=== PATIENT | female | born 1965 | race Caucasian/White ===

== ENCOUNTER 2016-11-08 14:39 | Inpatient (IN) | payer OTHER ==
[~2016-11-08] VITALS: Ht 160 cm; Wt 99.9 kg
[2016-11-08 17:39] LABS: BASOPHIL COUNT 0.1 K/uL (0-0.1); EOSINOPHIL (%) 0.2 % (0-5); HEMATOCRIT 39.5 % (36.0-46.0); IMMATURE GRANULOCYTE (%) 4.1 % (0.0-0.7); IMMATURE GRANULOCYTE COUNT 1.7 K/uL; LYMPHOCYTE COUNT 0.5 K/uL (1.0-2.8); MCH 17.9 PG (29.0-34.0); MCHC 30.4 G/DL (30.0-36.0); MONOCYTE (%) 3.6 % (3-12); MONOCYTE COUNT 0.2 K/uL (0-0.8); NEUTROPHIL (%) 78.1 % (45-76); NEUTROPHIL COUNT 3.2 K/uL (1.8-6.4); RBC DIS.WIDTH-CV 22.3 % (11.8-14.6); RBC DIS.WIDTH-SD 45.4 % (39-53); RED BLOOD COUNT 6.69 M/uL (3.80-5.20); WHITE BLOOD COUNT 4.2 K/uL (4.1-10.2)
[2016-11-08 17:46] LABS: CHLORIDE 102 mEq/L (99-109); POTASSIUM 3.4 mEq/L (3.7-5.4); SODIUM 138 mEq/L (136-147)
[2016-11-08 17:48] LABS: GLUCOSE 77 mg/dL (70-99)
[2016-11-08 17:49] LABS: ANION GAP 14 MEQ/L (2-14)
[2016-11-08 17:50] LABS: TOTAL BILIRUBIN 0.7 mg/dL (0.0-1.0)
[2016-11-08 17:52] LABS: ALKALINE PHOSPHATASE 112 IU/L (3-129); GFR ESTIMATE (CALCULATED) > 59 mL/min/
[2016-11-08 17:53] LABS: UREA NITROGEN (BUN) 10 mg/dL (9-23)
[2016-11-08 18:31] LABS: PLAT.SUFFICIENCY ADEQUATE; USER ID BW1
[2016-11-08 18:32] LABS: PLATELET COUNT 163 K/uL (156-360)
[2016-11-08 19:36] LABS: SALICYLATE < 5.0 MG/DL (15-30)
[2016-11-08] MEDS ORDERED: PREDNISONE20 MG PO (19:53)
[2016-11-08] MEDS ORDERED: LEVAQUIN750 MG PO (19:54)
[2016-11-08] MEDS ORDERED: PROTONIX40 MG PO (19:54)
[2016-11-08] MEDS ORDERED: DULCOLAX5 MG PO (19:55)
[2016-11-08] MEDS ORDERED: FEOSOL325 MG PO (19:55)
[2016-11-08] MEDS ORDERED: AIRBORNE LOZEN1 EACH MM (19:56)
[2016-11-08] MEDS ORDERED: TYLENOL EXTRA500 MG PO (19:57)
[2016-11-08] MEDS ORDERED: MOTRIN IB200 MG PO (19:57)
[2016-11-08 23:20] VITALS: BP 124/65
[2016-11-09 06:45] LABS: ALKALINE PHOSPHATASE 103 IU/L (3-129); ANION GAP 12 MEQ/L (2-14); CHLORIDE 98 MEQ/L (99-109); DIRECT BILIRUBIN 0.2 mg/dL (0.0-0.3); GFR ESTIMATE (CALCULATED) > 59 mL/min/; GLUCOSE 88 mg/dL (70-99); POTASSIUM 3.5 MEQ/L (3.7-5.4); SAMPLE HEMOLYSIS CHECK 0; SAMPLE ICTERIC CHECK 0; SAMPLE LIPEMIA CHECK 0; SODIUM 134 MEQ/L (136-147); TOTAL BILIRUBIN 0.6 MG/DL (0.0-1.0); UREA NITROGEN (BUN) 9 mg/dL (9-23)
[2016-11-09 06:53] LABS: HEMATOCRIT 37.3 % (36.0-46.0); MCH 17.7 PG (29.0-34.0); MCHC 28.7 G/DL (30.0-36.0); MCV 61.7 FL (83-99); RBC DIS.WIDTH-SD 45.5 % (39-53); RED BLOOD COUNT 6.05 M/uL (3.80-5.20)
[2016-11-09 07:02] LABS: WHITE BLOOD COUNT 2.2 K/uL (4.1-10.2)
[2016-11-09 07:20] LABS: HEMATOLOGY COMMENT 1 SMEAR COMPATIBLE; PLATELET COUNT 149 K/uL (156-360)
[2016-11-09 07:54] VITALS: BP 130/75
[2016-11-09 09:01] LABS: INTER. NORMALIZED RATIO 1.3; PROTHROMBIN TIME 13.6 (9.2-11.2)
[2016-11-09 10:35] LABS: HBSG INDEX 0.18
[2016-11-09 10:36] LABS: ANTI-HEPATITIS A VIRUS (IGM) Nonreactive; HAV INDEX 0.21
[2016-11-09 10:37] LABS: ANTI-HEPATITIS B CORE (IGM) Nonreactive; HBC IgM INDEX 0.08
[2016-11-09 10:38] LABS: HBSG INDEX 0.15
[2016-11-09 10:39] LABS: ANTI-HEPATITIS A VIRUS (IGM) Nonreactive; HAV INDEX 0.23
[2016-11-09 10:40] LABS: ANTI-HEPATITIS B CORE (IGM) Nonreactive; HBC IgM INDEX 0.09
[2016-11-09 15:19] VITALS: BP 130/65
[2016-11-09 16:00] VITALS: BP 130/65
[2016-11-09 23:36] VITALS: BP 130/69
[2016-11-10 06:53] LABS: INTER. NORMALIZED RATIO 1.2; PROTHROMBIN TIME 12.3 (9.2-11.2)
[2016-11-10 07:16] LABS: ALKALINE PHOSPHATASE 122 IU/L (3-129); ANION GAP 8 MEQ/L (2-14); CHLORIDE 99 MEQ/L (99-109); DIRECT BILIRUBIN 0.1 mg/dL (0.0-0.3); GFR ESTIMATE (CALCULATED) > 59 mL/min/; GLUCOSE 107 mg/dL (70-99); POTASSIUM 4.2 MEQ/L (3.7-5.4); SAMPLE HEMOLYSIS CHECK 0; SAMPLE ICTERIC CHECK 0; SAMPLE LIPEMIA CHECK 0; SODIUM 134 MEQ/L (136-147); UREA NITROGEN (BUN) 10 mg/dL (9-23)
[2016-11-10 07:19] LABS: TOTAL BILIRUBIN 0.4 MG/DL (0.0-1.0)
[2016-11-10 09:28] VITALS: BP 116/83
[2016-11-10 13:42] LABS: ALKALINE PHOSPHATASE 137 IU/L (3-129); DIRECT BILIRUBIN 0.1 mg/dL (0.0-0.3); TOTAL BILIRUBIN 0.4 MG/DL (0.0-1.0)
[2016-11-10 16:06] VITALS: BP 113/76
[2016-11-10 23:52] VITALS: BP 97/65
[2016-11-11 07:37] LABS: INTER. NORMALIZED RATIO 1.1; PROTHROMBIN TIME 11.4 (9.2-11.2)
[2016-11-11 08:03] VITALS: BP 140/70
[2016-11-11 08:05] LABS: ALKALINE PHOSPHATASE 121 IU/L (3-129); DIRECT BILIRUBIN 0.1 mg/dL (0.0-0.3)
[2016-11-11 08:06] LABS: TOTAL BILIRUBIN 0.5 MG/DL (0.0-1.0)
[2016-11-11 10:59] LABS: IRON 12 MCG/DL (35-150)
[2016-11-11 13:09] LABS: BASOPHIL COUNT 0.1 K/uL (0-0.1); EOSINOPHIL (%) 0.1 % (0-5); HEMATOCRIT 35.3 % (36.0-46.0); HEMATOLOGY COMMENT 1 SMEAR COMPATIBLE; IMMATURE GRANULOCYTE (%) 1.6 % (0.0-0.7); IMMATURE GRANULOCYTE COUNT 0.1 K/uL; LYMPHOCYTE COUNT 1.4 K/uL (1.0-2.8); MCH 17.5 PG (29.0-34.0); MCHC 29.2 G/DL (30.0-36.0); MCV 60.1 FL (83-99); MONOCYTE (%) 7.8 % (3-12); MONOCYTE COUNT 0.6 K/uL (0-0.8); NEUTROPHIL (%) 71.1 % (45-76); NEUTROPHIL COUNT 5.4 K/uL (1.8-6.4); PLAT.SUFFICIENCY ADEQUATE; PLATELET COUNT 178 K/uL (156-360); RBC DIS.WIDTH-CV 21.4 % (11.8-14.6); RBC DIS.WIDTH-SD 45.3 % (39-53); RED BLOOD COUNT 5.87 M/uL (3.80-5.20); USER ID CCL; WHITE BLOOD COUNT 7.6 K/uL (4.1-10.2)
[2016-11-11 16:34] VITALS: BP 140/98
[2016-11-11 22:34] VITALS: BP 125/85
[2016-11-12 07:21] LABS: ALKALINE PHOSPHATASE 114 IU/L (3-129); DIRECT BILIRUBIN 0.1 mg/dL (0.0-0.3); TOTAL BILIRUBIN 0.4 MG/DL (0.0-1.0)
[2016-11-12 07:31] LABS: EOSINOPHIL (%) 0.2 % (0-5); IMMATURE GRANULOCYTE (%) 1.5 % (0.0-0.7); IMMATURE GRANULOCYTE COUNT 0.1 K/uL; LYMPHOCYTE COUNT 1.3 K/uL (1.0-2.8); MONOCYTE (%) 8.3 % (3-12); MONOCYTE COUNT 0.5 K/uL (0-0.8); NEUTROPHIL COUNT 4.5 K/uL (1.8-6.4)
[2016-11-12 07:39] LABS: HEMATOCRIT 35.3 % (36.0-46.0); MCH 17.7 PG (29.0-34.0); MCHC 29.5 G/DL (30.0-36.0); MCV 60.2 FL (83-99); RBC DIS.WIDTH-CV 21.1 % (11.8-14.6); RBC DIS.WIDTH-SD 44.8 % (39-53); RED BLOOD COUNT 5.86 M/uL (3.80-5.20); WHITE BLOOD COUNT 6.5 K/uL (4.1-10.2)
[2016-11-12 07:41] LABS: HEMATOLOGY COMMENT 1 SMEAR COMPATIBLE; PLAT.SUFFICIENCY ADEQUATE; PLATELET COUNT 152 K/uL (156-360); USER ID CL
[2016-11-12 08:17] VITALS: BP 120/80
[2016-11-12] MEDS ORDERED: ORABASE-B7 GM MM (15:31)
[2016-11-12] MEDS ORDERED: VALACYCLOVIR500 MG PO (15:32)
[2016-11-12] MEDS ORDERED: PREDNISONE20 MG PO (15:37)
[2016-11-12 17:10] VITALS: BP 116/79
[2016-11-13 20:44] LABS: Neutrophil Cytoplasmic Aby Negative (Negative)
== END 2016-11-12 17:15 | disposition home or self-care (01) | DRG 158 ==
LOC: EME 14:39 → EDOF 21:44 → 5EAST 21:44
PROVIDERS: Emergency Medicine; Hospitalist; Internal Medicine; Internal Medicine Gastroenterology; Internal Medicine Infectious Disease
DX: B00.2 Herpesviral gingivostomatitis and pharyngotonsillitis (principal); R65.10 Systemic inflammatory response syndrome (SIRS) of non-infectious origin without acute organ dysfunction; J96.10 Chronic respiratory failure, unspecified whether with hypoxia or hypercapnia; E22.2 Syndrome of inappropriate secretion of antidiuretic hormone; Q87.1 Congenital malformation syndromes predominantly associated with short stature; K71.6 Toxic liver disease with hepatitis, not elsewhere classified; R50.9 Fever, unspecified; B00.9 Herpesviral infection, unspecified; Z99.81 Dependence on supplemental oxygen; J84.10 Pulmonary fibrosis, unspecified; K75.4 Autoimmune hepatitis; Z88.0 Allergy status to penicillin; Z79.52 Long term (current) use of systemic steroids; T38.0X5A Adverse effect of glucocorticoids and synthetic analogues, initial encounter; D72.819 Decreased white blood cell count, unspecified; R13.10 Dysphagia, unspecified; Z87.01 Personal history of pneumonia (recurrent)
CPT/HCPCS: 71010; 76705; 80048; 80053; 80074; 80076; 81003; 82607; 82746; 83516 90; 83540; 84466; 85025; 85027; 85610; 85651; 86021 90; 86038; 86140; 86658 90; 87040; 87254; 93005; 94799; 99281; 99285; G0480; J0133; J1644; J1885; J2270; J3010; J7030; J7050; J7120; J7512; Q0138; S0028